=== PATIENT | male | born 1965 | race Caucasian/White ===

== ENCOUNTER → 2022-10-03 | Outpatient (CLI) | payer SELFPAY ==
--- NOTE | 2022-10-03 12:20 | RAD_ITS ---
EXAM: XR LUMBOSACRAL SPINE, 4 OR 5 VIEWS CLINICAL INDICATION: Segmental and somatic dysfunction of lumbar region TECHNIQUE: Frontal, lateral and bilateral oblique views of the lumbar spine. COMPARISON: No relevant prior studies available. FINDINGS: VERTEBRAE: 5 lumbar type vertebral bodies. Preserved vertebral body height. No fracture. Preservation of the normal lumbar lordosis. DISC SPACES: Mild degenerative narrowing of the L2/3, L3/4 and L4/5 disc spaces. Oblique views show no pars defect, but lumbar facet arthritis is present, greatest at the L4/5 level. There is slight anterolisthesis of L4 on L5 secondary to the facet arthritis. L1/2 disc space is preserved. T12/L1 disc space is slightly narrowed with small marginal osteophytes. Chondrocalcinosis noted within the T11/12 disc. GASTROINTESTINAL TRACT: Unremarkable as visualized. Included bowel gas pattern is non-obstructive. OTHER: The visualized lower ribs are intact. Pedicles are intact. SI joints are not abnormally widened. RAD/L/S Spine Min 4 Views IMPRESSION: No evidence of lumbar spinal fracture. Lumbar degenerative disc disease and facet arthritis. Slight anterolisthesis of L4 on L5 due to the facet arthritis. Electronically Signed: Toni Shah MD at 6:42 EDT ,
== END | disposition home or self-care (01) ==
PROVIDERS: Referring Provider Chiropractor Orthopedic; Visit Provider Chiropractor Orthopedic
DX: M99.03 Segmental and somatic dysfunction of lumbar region (principal); M99.04 Segmental and somatic dysfunction of sacral region; M54.50 Low back pain, unspecified
CPT/HCPCS: 72110